=== PATIENT | female | born 1965 | race Caucasian/White ===

== ENCOUNTER 2016-09-29 00:08 | Inpatient (IN) | payer OTHER ==
[2016-09-29] MEDS ORDERED: fentaNYL Inj 100 MCG/2 ML VIAL ONE (01:19)
[2016-09-29] MEDS ORDERED: ONDANSETRON 4 MG/2 ML VIAL ONE (01:19)
[2016-09-29] MEDS ORDERED: Sodium Chloride 0.9% 1,000 ML ONE (01:19)
[2016-09-29] MEDS ORDERED: fentaNYL Inj 100 MCG/2 ML VIAL IVP ONE (01:39)
[2016-09-29] MEDS ORDERED: ONDANSETRON 4 MG/2 ML VIAL IVP ONE (01:39)
[2016-09-29] MEDS ORDERED: Sodium Chloride 0.9% 1,000 ML PRIMARY IV ONE (01:39)
--- NOTE | 2016-09-29 02:20 | DI ---
HISTORY: Pancreatitis. Right upper quadrant pain. Leukocytosis. COMPARISON: None available. TECHNIQUE: Sonographic images of the abdomen were obtained and submitted for interpretation. FINDINGS: The liver exhibits heterogeneously increased echotexture without discrete mass, a finding most commonly associated with hepatic steatosis. There is no intrahepatic biliary dilatation. The g allbladder is unremarkable. No cholelithiasis is detected. There is no gallbladder wall thickening. No pericholecystic fluid or sonographic Escobar's sign is present. The common bile duct is dilated at 7 mm. Imaged portions of the pancreas are notable for hypoechoic echotexture of the head of the p ancreas. The right kidney exhibits normal sonographic morphology. It measures 11.0 cm in length wit h no evidence of hydronephrosis or shadowing stones. Imaged portions of the abdominal aorta are with in normal limits with distal tapering. IMPRESSION: 1. The liver exhibits heterogeneously increased echotexture without discrete mass, a finding most com monly associated with hepatic steatosis. 2. The common bile duct is dilated at 7 mm. An MRI/MRCP may be obtained for further characterization . GI or surgical consultation should be considered. 3. Imaged portions of the pancreas are notable for hypoechoic echotexture of the head of the pancreas . Differential considerations include acute pancreatitis, though a neoplastic process could have a s imilar appearance. Advanced cross-sectional imaging is recommended for definitive characterization. NOTE: The interpreting Radiologist was not present at the time of ultrasound interrogation.
[2016-09-29] MEDS ORDERED: MAG HYDROX/AL HYDROX/SIMETH 30 ML SUSP PO PRN (03:04)
[2016-09-29] MEDS ORDERED: LORazepam Inj(ETOH withdrawal) 2 MG/ML VIAL IVP PRN ×2 (03:04)
[2016-09-29] MEDS ORDERED: Loperamide Tab 2 MG TABLET PO PRN (03:04)
[2016-09-29] MEDS ORDERED: ONDANSETRON 4 MG/2 ML VIAL IV PRN (03:04)
[2016-09-29] MEDS ORDERED: MAGNESIUM 400 MG/5 ML - 30 ML (MILK OF MAGNESIA) PO PRN (03:04)
[2016-09-29] MEDS: HEPARIN 5000 UNIT/1 ML SUBCUT SCH ×3 (03:41→19:53)
[2016-09-29] MEDS: HYDROmorphone 2 MG/1 ML IVP PRN ×7 (03:42→22:17)
[2016-09-29] MEDS: NORMAL SALINE 10 ML SYRINGE FLUSH IVP PRN ×3 (03:42→22:18)
[2016-09-29] MEDS: D5-1/2NS + 40mEq KCL 1,000 ML PRIMARY IV SCH ×3 (03:43→22:19)
[2016-09-29] MEDS: NICOTINE 21 MG /DAY PATCH TRANSDERM SCH (08:38)
[2016-09-29] MEDS: Pantoprazole Inj 40 MG in Normal Saline Flush 10 ML IVP SCH (08:38)
--- NOTE | 2016-09-29 13:31 | PDOC ---
History and Physical - History of Present Illness History of Present Illness: Is a very nice 51-year-old female with past medical history significant for alcohol use she has been not using alcohol for 3 years but recently restarted. She has had pancreatitis before 4 years ago as well started having abdominal pain went to the [place] [facility] where she was found to have elevated lipase and was transferred to [facility]. Her pain is being controlled with IV narcotics. The patient stated that she had an MRI scheduled for Wednesday for her chronic back pain and was wondering if we can do this while she is in the hospital. I explained the whole her the different causes and etiologies of pancreatitis hers most likely secondary to alcohol use her ultrasound was negative with no common bile duct the she also start him to be in alcohol withdrawal syndrome which could further prolong her hospital stay Past Medical History Medical History: Previous history of pancreatitis 4 years ago, alcohol abuse was sober for 3 years now restarted, chronic back pain Tobacco Use: Current Every Day Smoker Substance Use Type: None Alcohol Use: Heavy Medication / Allergies Home Medications: Home Medications Medication Instructions Recorded Confirmed Type Tramadol HCl 2 tab PO Q4H tab 07/19/15 09/29/16 History Cyclobenzaprine HCl [Flexeril] 10 mg PO PRN PRN 09/29/16 09/29/16 History Ibuprofen 800 mg PO PRN PRN 09/29/16 09/29/16 History Oxycodone HCl/Acetaminophen 1.5 tab PO PRN PRN 09/29/16 09/29/16 History [Oxycodone-Acetaminophen 5-325] methylPREDNISolone Dose Pack 1 tab PO DAILY 09/29/16 09/29/16 History [Medrol Dose Pack] Allergies/Adverse Reactions: Allergies Allergy/AdvReac Type Severity Reaction Status Date / Time propoxyphene napsylate Allergy Severe Anaphylaxis Verified 09/29/16 06:32 [From Darvocet-N] acetaminophen [From Tylenol] Allergy Intermediate NAUSEA Verified 09/29/16 06:32 codeine Allergy Intermediate NAUSEA Verified 09/29/16 06:32 loratadine [From Tavist ND] Allergy Intermediate HIVES Verified 09/29/16 06:32 prednisone AdvReac Intermediate HALLUCINATI Verified 09/29/16 06:32 ONS morphine AdvReac Mild VOMITING Verified 09/29/16 06:32 contrast dye Allergy HIVES Uncoded 09/29/16 06:32 Review of Systems - Review of Systems All Systems: Reviewed & No Additional Complaints Except as Stated - Eye Exam Eye Exam: DENIES: Negative System Review, Acuity Good, Acuity Fair, Acuity Poor , Glasses/Contacts, Vision Loss, Blurring, Redness, Diplopia, Catarats, Other, See HPI - Mouth/Throat Mouth/Throat Exam: DENIES: Negative System Review, Dental Problems, Oral Ulcers , Sore Throat, Hoarseness, Dysphagia, Dental Pain, Other, See HPI - Cardiovascular Cardiovascular: DENIES: Negative System Review, Chest Pain, Edema, Syncope, Palpitations, Orthopnea, Paroxysmal Nocturnal Dyspnea, Other, See HPI - Gastrointestinal Gastrointestinal / Abdominal: REPORTS: Abdominal Pain - Genitourinary Genitourinary: DENIES: Negative System Review, Pain, Burning, Hematuria, Incontinence, Urgency, Hesitant Stream, Decreased Stream, Nocutria, Discharge, Sexual Dyfunction, Other, See HPI - Neurological Neurologic: REPORTS: Tremors Exam - Vitals Vital Signs: Vital Signs Temperature 98.4 F Temperature Source Oral Pulse Rate [Apical] 68 Pulse Rate [Pulse Oximeter] 74 Pulse Rate 68 Respiratory Rate 16 Blood Pressure [Left Arm] 155/99 Blood Pressure 155/99 Pulse Ox 96 Oxygen Flow Rate 2 Oxygen Delivery Method Room Air Height 5 ft 9 in Weight 57.606 kg - General General Appearance: POSITIVE: No Acute Distress, Cooperative - Head Head Exam: POSITIVE: Normal Inspection, Normocephalic, Atraumatic - Eye Eye Exam: POSITIVE: Normal Appearance - Neck Neck Exam: POSITIVE: Normal Inspection, Full ROM - Respiratory Respiratory Exam: POSITIVE: Clear to Auscultation - Bilaterally, Breathing Non Labored, Normal To Percussion, Normal to Percussion and Palpation - Cardiovascular Cardiovascular Exam: POSITIVE: RRR, No Murmur, No Clicks, No Gallops - GI/Abdominal GI/Abdominal Exam: POSITIVE: Non Tender, Non Distended, Soft - Extremities Extremities Exam: POSITIVE: No Clubbing Present, No Edema Present - Neurological Neurological Exam: POSITIVE: Alert, Oriented x 3, No Facial Droop, Speech Intact / Clear Assessment and Plan - Patient Problems (1) Acute pancreatitis Current Visit: Yes Status: Acute Comment: Keep the patient nothing by mouth monitor lipase and amylase. We will obtain a CT scan of her abdomen and pelvis (2) Alcohol withdrawal syndrome Current Visit: Yes Status: Acute Comment: LONNIE scale with Ativan , thiamine Protonix (3) Abdominal pain Current Visit: Yes Status: Acute
[2016-09-29] MEDS: THIAMINE 100 MG/1 ML - 2 ML IM SCH (13:52)
[2016-09-29 14:24] LABS: HEMATOCRIT 44.1 % (37.0-47.0); HEMOGLOBIN 15.2 g/dL (12.0-16.0); MEAN CORPUSCULAR HEMOGLOBIN 33.3 PG (27-31); MEAN CORPUSCULAR HGB CONC 34.5 g/dL (33-37); RDW COEFFICIENT OF VARIATION 13.6 % (11.5-14.5); RED BLOOD COUNT 4.57 10^6/uL (4.20-5.40); WHITE BLOOD COUNT 9.17 10^3/uL (4.8-10.8)
[2016-09-29 15:39] LABS: ASPARTATE AMINO TRANSFERASE 68 IU/L (8-39); BILIRUBIN,TOTAL 0.6 mg/dL (0.3-1.2); BLOOD UREA NITROGEN 14 mg/dL (7-22); CHLORIDE 104 meq/L (98-112); CREATININE 0.7 mg/dL (0.50-1.20); EST GLOMERULAR FILTRATION > 60 (>60 ml/min/1.73m(2)); GLUCOSE 110 mg/dL (78-110); MAGNESIUM 1.9 mg/dL (1.6-2.4); POTASSIUM 4.5 meq/L (3.8-5.2); SODIUM 135 meq/L (135-145); TOTAL PROTEIN 6.4 g/dL (6.1-8.0)
--- NOTE | 2016-09-29 19:43 | DI ---
CT ABDOMEN/PELVIS W/O CONTRAST,09/29/2016 6:02 PM: Clinical History: Pancreatitis. Previous Exam: None at this facility. Findings: Multiple helically acquired CT images are obtained through the abdomen and pelvis without contrast. The liver, spleen, pancreas and adrenals are unremarkable. There is peripancreatic fat stranding whic h extends around the right peritoneal reflection with thickening of the anterior pararenal fascia. The urinary bladder is unremarkable. The appendix is within normal limits. There is no evidence of free air nor free fluid. There is no abscess. Skeletal structures are unremarkable. There is moderate stool seen throughout the colon. Impression: Peripancreatic inflammatory changes most consistent with pancreatitis. There is no evidence of absces s nor pseudocyst at this time.
[2016-09-30] MEDS: HYDROmorphone 2 MG/1 ML IVP PRN ×3 (01:18→06:17)
[2016-09-30] MEDS: NORMAL SALINE 10 ML SYRINGE FLUSH IVP PRN ×3 (01:18→06:17)
[2016-09-30] MEDS: HEPARIN 5000 UNIT/1 ML SUBCUT SCH ×3 (03:48→18:37)
[2016-09-30] MEDS: D5-1/2NS + 40mEq KCL 1,000 ML PRIMARY IV SCH ×5 (07:11→19:01)
[2016-09-30 07:50] LABS: BASOPHILS # (AUTO) 0.01 10*3/UL; BASOPHILS % (AUTO) 0.1 % (0-1); EOSINOPHILS % (AUTO) 1.4 % (0-8); HEMATOCRIT 44.1 % (37.0-47.0); IMM GRAN % (AUTO) 0.3 % (0-5); IMM GRAN# (AUTO) 0.02 10*3/UL; LYMPHOCYTES # (AUTO) 2.15 10*3/uL; LYMPHOCYTES % (AUTO) 27.3 % (10-50); MEAN CORPUSCULAR HEMOGLOBIN 33.2 PG (27-31); MONOCYTES # (AUTO) 0.61 10*3/UL (0.3-0.8); MONOCYTES % (AUTO) 7.8 % (5-15); NEUTROPHILS # (AUTO) 4.97 10*3/UL; NEUTROPHILS % (AUTO) 63.1 % (50-80); RDW COEFFICIENT OF VARIATION 13.3 % (11.5-14.5); RED BLOOD COUNT 4.52 10^6/uL (4.20-5.40); WHITE BLOOD COUNT 7.87 10^3/uL (4.8-10.8)
[2016-09-30 07:53] LABS: PLATELET MORPHOLOGY COMMENT NORMAL MORPHOLOGY (NORM)
[2016-09-30 08:03] LABS: ASPARTATE AMINO TRANSFERASE 90 IU/L (8-39); BILIRUBIN,TOTAL 0.5 mg/dL (0.3-1.2); BLOOD UREA NITROGEN 12 mg/dL (7-22); CALCIUM 9.2 mg/dL (8.7-10.7); CHLORIDE 105 meq/L (98-112); CREATININE 0.6 mg/dL (0.50-1.20); EST GLOMERULAR FILTRATION > 60 (>60 ml/min/1.73m(2)); GLUCOSE 105 mg/dL (78-110); POTASSIUM 4.7 meq/L (3.8-5.2); SODIUM 138 meq/L (135-145); TOTAL PROTEIN 6.3 g/dL (6.1-8.0)
[2016-09-30] MEDS: Pantoprazole Inj 40 MG in Normal Saline Flush 10 ML IVP SCH (08:21)
[2016-09-30] MEDS: THIAMINE 100 MG/1 ML - 2 ML IM SCH (08:22)
[2016-09-30] MEDS: NICOTINE 21 MG /DAY PATCH TRANSDERM SCH (08:23)
--- NOTE | 2016-09-30 08:23 | PDOC(PROG) ---
Date and Time of Service: 09/27/2016 8:21 AM Interval History: Subjective Patient feels better than when she came in, she came into the hospital because of epigastric pain that radiated to the back. She did say that she vomited multiple times around 8 times. She presented to [place] she was found to have pancreatitis and was transferred here. No more vomiting since she's been here. She did have a bowel movement 2 days ago. Currently she rates her pain maybe 7 out of 10. She does not appear in distress. Objective : Data - Labs CBC and BMP: 09/30/16 06:25 09/30/16 06:25 Labs - Last 24 Hours: Laboratory Results 09/29/16 09/30/16 Range/Units 14:21 06:25 WBC 9.17 7.87 (4.8-10.8) 10^3/uL RBC 4.57 4.52 (4.20-5.40) 10^6/uL Hgb 15.2 15.0 (12.0-16.0) g/dL Hct 44.1 44.1 (37.0-47.0) % MCV 96.5 97.6 (81-99) FL MCH 33.3 H 33.2 H (27-31) PG MCHC 34.5 34.0 (33-37) g/dL RDW Std Deviation 46.9 46.8 (39-50) fL RDW Coeff of Cherrie 13.6 13.3 (11.5-14.5) % Plt Count 155 140 (140-350) 10*3/uL MPV 10.0 10.0 (7.4-12.2) FL Immature Gran % (Auto) 0.3 (0-5) % Neut % (Auto) 63.1 (50-80) % Lymph % (Auto) 27.3 (10-50) % [place] % (Auto) 7.8 (5-15) % Eos % (Auto) 1.4 (0-8) % Baso % (Auto) 0.1 (0-1) % Immature Gran # (Auto) 0.02 10*3/UL Neut # (Auto) 4.97 10*3/UL Lymph # (Auto) 2.15 10*3/uL Becker # (Auto) 0.61 (0.3-0.8) 10*3/UL Eos # (Auto) 0.11 10*3/UL Baso # (Auto) 0.01 10*3/UL WBC Morphology Comment Normal morphology (NORM) Plt Morphology Comment Normal morphology (NORM) RBC Morph Comment Normal morphology (NORM) Sodium 135 138 (135-145) meq/L Potassium 4.5 4.7 (3.8-5.2) meq/L Chloride 104 105 (98-112) meq/L Carbon Dioxide 23 23 (23-33) meq/L Anion Gap 8 10 (5-20) BUN 14 12 (7-22) mg/dL Creatinine 0.7 0.6 (0.50-1.20) mg/dL Estimated GFR > 60 > 60 (>60 ml/min/1.73m(2)) BUN/Creatinine Ratio 20.00 20.00 (6-20) Glucose 110 105 (78-110) mg/dL Calculated Osmolality 281.0 285.0 (267-292) mOsm/kg Lactic Acid < 0.5 L (0.70-2.10) MMOL/L Calcium 9.0 9.2 (8.7-10.7) mg/dL Magnesium 1.9 (1.6-2.4) mg/dL Total Bilirubin 0.6 0.5 (0.3-1.2) mg/dL AST 68 H 90 H (8-39) IU/L ALT 74 H 70 H (9-52) IU/L Alkaline Phosphatase 103 96 (38-126) IU/L Total Protein 6.4 6.3 (6.1-8.0) g/dL Albumin 4.0 3.7 (3.5-4.8) g/dL Globulin 2.4 L 2.6 (2.50-4.10) g/dL Albumin/Globulin Ratio 1.60 1.40 (1.3-2.0) mg/g Lipase 949 H 674 H (23-300) IU/L Objective : Exam - General General Appearance: No Acute Distress, Cooperative, Thin - Head Head Exam: Normal Inspection - Eye Eye Exam: Normal Appearance - ENT ENT Exam: Normal Exam - Neck Neck Exam: Normal Inspection - Respiratory Respiratory Exam: Clear to Auscultation - Bilaterally - Cardiovascular Cardiovascular Exam: RRR - GI/Abdominal GI/Abdominal Exam: Normal Bowel Sounds, Non Distended, Soft Additional GI/Abdominal Exam Details: Minimal tenderness in the epigastric area - Rectal Rectal Exam: Deferred - External Exam: Deferred - Extremities Extremities Exam: Normal Inspection - Back Back Exam: Normal Inspection - Neurological Neurological Exam: Alert, Oriented x 3, CN II-XII Intact, Moves All Extremities Equally Additional Neurological Exam Details: No tremor noted in hand - Integumentary Integumentary Exam: Normal Color Assessment and Plan - Patient Problems (1) Acute pancreatitis Current Visit: Yes Status: Acute Comment: Secondary to alcohol, I think we can start her on clear liquid and advance as tolerated. Continue current pain medication. Will write also for oxycodone and see whether we can transition her to oral pain medications (2) Alcohol withdrawal syndrome Current Visit: Yes Status: Acute Comment: She is on CIWA protocol continue.
[2016-09-30] MEDS: oxyCODONE IR Tab 5 MG TAB PO PRN ×3 (08:36→19:49)
[2016-10-01] MEDS: HEPARIN 5000 UNIT/1 ML SUBCUT SCH ×2 (04:14→11:46)
[2016-10-01] MEDS: D5-1/2NS + 40mEq KCL 1,000 ML PRIMARY IV SCH (05:16)
[2016-10-01 06:46] LABS: BASOPHILS # (AUTO) 0.02 10*3/UL; BASOPHILS % (AUTO) 0.2 % (0-1); EOSINOPHILS % (AUTO) 1.7 % (0-8); HEMATOCRIT 44.6 % (37.0-47.0); HEMOGLOBIN 15.6 g/dL (12.0-16.0); IMM GRAN % (AUTO) 0.3 % (0-5); IMM GRAN# (AUTO) 0.03 10*3/UL; LYMPHOCYTES # (AUTO) 2.23 10*3/uL; LYMPHOCYTES % (AUTO) 24.8 % (10-50); MEAN CORPUSCULAR HEMOGLOBIN 33.3 PG (27-31); MEAN PLATELET VOLUME 10.7 FL (7.4-12.2); MONOCYTES # (AUTO) 0.64 10*3/UL (0.3-0.8); MONOCYTES % (AUTO) 7.1 % (5-15); NEUTROPHILS # (AUTO) 5.92 10*3/UL; NEUTROPHILS % (AUTO) 65.9 % (50-80); RDW COEFFICIENT OF VARIATION 13.5 % (11.5-14.5); RED BLOOD COUNT 4.68 10^6/uL (4.20-5.40); WHITE BLOOD COUNT 8.99 10^3/uL (4.8-10.8)
[2016-10-01 06:48] LABS: PLATELET MORPHOLOGY COMMENT NORMAL MORPHOLOGY (NORM)
[2016-10-01 07:06] LABS: ASPARTATE AMINO TRANSFERASE 75 IU/L (8-39); BILIRUBIN,TOTAL 0.7 mg/dL (0.3-1.2); BLOOD UREA NITROGEN 11 mg/dL (7-22); BUN/CREATININE RATIO 18.33 (6-20); CALCIUM 9.3 mg/dL (8.7-10.7); CHLORIDE 106 meq/L (98-112); CREATININE 0.6 mg/dL (0.50-1.20); EST GLOMERULAR FILTRATION > 60 (>60 ml/min/1.73m(2)); GLUCOSE 104 mg/dL (78-110); SODIUM 138 meq/L (135-145); TOTAL PROTEIN 6.6 g/dL (6.1-8.0)
[2016-10-01 07:11] LABS: POTASSIUM 5.5 meq/L (3.8-5.2)
[2016-10-01 07:19] VITALS: RESP 16
--- NOTE | 2016-10-01 08:00 | PDOC(PROG) ---
Date and Time of Service: 10/01/2016 a.m. Interval History: Subjective She feels better, no significant abdominal pain. No vomiting. She did tolerate her clear liquid yesterday. She did have some broth last night also and tolerated that. She did say she woke up [facility] and did not know where she is, but that's corrected quickly. They did give her though some Ativan [facility]. She wants to go home. She said she planning on quitting drinking. Objective : Data - Labs CBC and BMP: 10/01/16 06:31 10/01/16 06:31 Labs - Last 24 Hours: Laboratory Results 09/30/16 10/01/16 Range/Units 06:25 06:31 WBC 8.99 (4.8-10.8) 10^3/uL RBC 4.68 (4.20-5.40) 10^6/uL Hgb 15.6 (12.0-16.0) g/dL Hct 44.6 (37.0-47.0) % MCV 95.3 (81-99) FL MCH 33.3 H (27-31) PG MCHC 35.0 (33-37) g/dL RDW Std Deviation 45.9 (39-50) fL RDW Coeff of Cherrie 13.5 (11.5-14.5) % Plt Count 143 (140-350) 10*3/uL MPV 10.7 (7.4-12.2) FL Immature Gran % (Auto) 0.3 (0-5) % Neut % (Auto) 65.9 (50-80) % Lymph % (Auto) 24.8 (10-50) % [place] % (Auto) 7.1 (5-15) % Eos % (Auto) 1.7 (0-8) % Baso % (Auto) 0.2 (0-1) % Immature Gran # (Auto) 0.03 10*3/UL Neut # (Auto) 5.92 10*3/UL Lymph # (Auto) 2.23 10*3/uL [place] # (Auto) 0.64 (0.3-0.8) 10*3/UL Eos # (Auto) 0.15 10*3/UL Baso # (Auto) 0.02 10*3/UL WBC Morphology Comment Normal morphology (NORM) Plt Morphology Comment Normal morphology (NORM) RBC Morph Comment Normal morphology (NORM) Sodium 138 138 (135-145) meq/L Potassium 4.7 5.5 H (3.8-5.2) meq/L Chloride 105 106 (98-112) meq/L Carbon Dioxide 23 24 (23-33) meq/L Anion Gap 10 8 (5-20) BUN 12 11 (7-22) mg/dL Creatinine 0.6 0.6 (0.50-1.20) mg/dL Estimated GFR > 60 > 60 (>60 ml/min/1.73m(2)) BUN/Creatinine Ratio 20.00 18.33 (6-20) Glucose 105 104 (78-110) mg/dL Calculated Osmolality 285.0 284.0 (267-292) mOsm/kg Calcium 9.2 9.3 (8.7-10.7) mg/dL Total Bilirubin 0.5 0.7 (0.3-1.2) mg/dL AST 90 H 75 H (8-39) IU/L ALT 70 H 60 H (9-52) IU/L Alkaline Phosphatase 96 92 (38-126) IU/L Total Protein 6.3 6.6 (6.1-8.0) g/dL Albumin 3.7 3.8 (3.5-4.8) g/dL Globulin 2.6 2.8 (2.50-4.10) g/dL Albumin/Globulin Ratio 1.40 1.30 (1.3-2.0) mg/g Lipase 674 H 469 H (23-300) IU/L Objective : Exam - General General Appearance: No Acute Distress, Cooperative - Head Head Exam: Normal Inspection - Eye Eye Exam: Normal Appearance - ENT ENT Exam: Normal Exam - Neck Neck Exam: Normal Inspection - Respiratory Respiratory Exam: Clear to Auscultation - Bilaterally - Cardiovascular Cardiovascular Exam: RRR - GI/Abdominal GI/Abdominal Exam: Normal Bowel Sounds, Non Tender, Non Distended, Soft - Rectal Rectal Exam: Deferred - External Exam: Deferred - Extremities Extremities Exam: Normal Inspection - Back Back Exam: Normal Inspection - Neurological Neurological Exam: Alert, Oriented x 3, Speech Intact / Clear, Moves All Extremities Equally Additional Neurological Exam Details: No tremor noted - Psychiatric Psychiatric Exam: Normal Affect Assessment and Plan - Patient Problems (1) Acute pancreatitis Current Visit: Yes Status: Acute Comment: This is improving. She is tolerating diet. I did tell her that we'll check on her later on today as she is having more regular meal this morning and if she doesn't have issues may send her home. I did tell her probably she need to have an MRI as recommended by the radiologist of the biliary duct as an outpatient. (2) Alcohol withdrawal syndrome Current Visit: Yes Status: Acute Comment: Resolved.
--- NOTE | 2016-10-01 08:28 | PDOC ---
Abdomen/Flank HPI - General Chief Complaint: Abdomen Pain Stated Complaint: ABDOMINAL PAIN Date Seen by Provider: 09/29/16 Time Seen by Provider: 00:10 - History of Present Illness Initial Comments: Patient's very nice 51-year-old woman who presents to the emergency department after being seen in the emergency department [place]. She is a daily drinker who does have history of pancreatitis who started to have epigastric pain again. Labs confirmed pancreatitis in loss but she also had substantial right upper quadrant pain and the provider there recommended being evaluated here for consideration of imaging. Patient did not want to go by ambulance therefore left in personal vehicle with a significant other and was brought here. Here she continues to have epigastric pain up to the right upper quadrant. She denies any hematemesis or hematochezia fever or chills vomiting bowel changes or other substantial issues. - Patient Home Medications Home Medications: Home Medications Tramadol HCl 2 tab PO Q4H tab 07/19/15 Cyclobenzaprine HCl [Flexeril] 10 mg PO PRN PRN 09/29/16 Ibuprofen 800 mg PO PRN PRN 09/29/16 Oxycodone HCl/Acetaminophen [Oxycodone-Acetaminophen 5-325] 1.5 tab PO PRN PRN 09/29/16 methylPREDNISolone Dose Pack [Medrol Dose Pack] 1 tab PO DAILY 09/29/16 - Patient Allergies Allergies/Adverse Reactions: Allergies Allergy/AdvReac Type Severity Reaction Status Date / Time propoxyphene napsylate Allergy Severe Anaphylaxis Verified 10/01/16 06:35 [From Darvocet-N] acetaminophen [From Tylenol] Allergy Intermediate NAUSEA Verified 10/01/16 06:35 codeine Allergy Intermediate NAUSEA Verified 10/01/16 06:35 loratadine [From Tavist ND] Allergy Intermediate HIVES Verified 10/01/16 06:35 prednisone AdvReac Intermediate HALLUCINATI Verified 10/01/16 06:35 ONS morphine AdvReac Mild VOMITING Verified 10/01/16 06:35 contrast dye Allergy HIVES Uncoded 10/01/16 06:35 Past Medical History - heen HEENT History: Denies History Cardiovascular History: Denies History Respiratory History: Denies History Gastrointestinal History: GERD, Pancreatitis, Other (please comment) Additional Gastrointestinal History: Pancreatitis from chronic alcoholism. Genitourinary History: Denies History Endocrine History: Denies History Musculoskeletal History: Back Pain, Other (please comment) Additional Musculoskeletal History: Right knee repair--no harware. Neurological History: Denies History Blood Disorders: Denies History Psychiatric History: Depression, Other (please comment) Additional Psychiatric History: Alcoholism. Female Reproductive History: Hysterectomy, Other (please comment) Additional Female Reproductive History: Hx of full hysterectomy due to cervical cancer. Obstetrical History: Denies History Cancer History: Other (please comment) In Past Year Been Physically Harmed or Verbally Threatened: No History of MDRO: No Tobacco Use: Current Every Day Smoker Alcohol Use: Heavy Type of alcohol normally used: Beer, Hard Liquor, Wine Substance Use Type: None Previous Surgical History: Yes Type / Date of Surgery: Right knee repair, tonsillectomy and adnoidectomy, full hysterectomy. Past Medical History Reviewed: Reviewed - No Changes ROS - Limitations ROS Limitations: No Limitations Constitution: REPORTS: Denies Symptoms Cardiovascular: REPORTS: Denies Cardiac Symptoms Respiratory: REPORTS: Denies Resp Symptoms Neurological: REPORTS: Denies Neuro Symptoms Abdominal/Flank Pain PE - General Appearance General Appearance: POSITIVE: Alert, Cooperative, No Acute Distress - Neck Neck: POSITIVE: Normal Inspection - Respiratory Respiratory: POSITIVE: No Respiratory Distress, Breath Sounds Normal - Cardiovascular Cardiovascular: POSITIVE: Regular Rate and Rhythm, Heart Sounds Normal - Abdomen Additional Abdominal Details: She has tenderness to palpation in the epigastrium up to the right upper quadrant. Bowel sounds are present. Abdomen Progress - Results Reviewed by me Radiology Findings: Mild biliary ductal dilatation no evidence of stones in the gallbladder or retained stone in the common bile duct. No evidence of cholecystitis. Lab Results Reviewed: Yes - Patient's Progress MDM / ED Course: Patient has acute pancreatitis most likely secondary to alcohol abuse. I've discussed her case with hospitalist has agreed to admit her to the hospital. She has had substantial alcohol withdrawal past when stopping alcohol use. Patient will be admitted and placed on IV fluids and made nothing by mouth status given pain control. Patient Care Time - Estimated PCT Patient Care Time (In Minutes): 40 Vital Signs - Recent Vital Signs Vital Signs: Vital Signs (Last 8 hours) Temp Pulse Pulse Pulse Resp BP BP 10/01/16 07:27 88 10/01/16 07:23 96.6 F L 88 16 123/89 10/01/16 07:18 96.6 F L 88 16 123/89 10/01/16 04:38 97.6 F 64 22 166/95 10/01/16 03:00 Pulse Ox 10/01/16 07:27 96 10/01/16 07:23 10/01/16 07:18 96 10/01/16 04:38 96 10/01/16 03:00 95 - VS Reviewed Vital Signs Reviewed: Yes Discharge Clinical Impression: Acute pancreatitis Qualifiers: Pancreatitis type: alcohol induced Acute pancreatitis complication: no infection or necrosis Qualifier Code: (K85.20) Alcohol induced acute pancreatitis without necrosis or infection Discharge Disposition: Admit to Inpatient Condition: Stable Date Decision to Admit to Inpatient: 09/29/16 Time Decision to Admit to Inpatient: 02:00
[2016-10-01] MEDS: THIAMINE 100 MG/1 ML - 2 ML IM SCH (08:33)
[2016-10-01] MEDS: Pantoprazole Inj 40 MG in Normal Saline Flush 10 ML IVP SCH (08:35)
[2016-10-01] MEDS: NICOTINE 21 MG /DAY PATCH TRANSDERM SCH (08:35)
[2016-10-01 11:51] VITALS: TEMP 98.1
--- NOTE | 2016-10-01 12:35 | DCSUMMARY ---
Hospitalization Summary Admit Date: 09/29/16 Discharge Date: 10/01/16 Hospital Course: Discharge diagnoses 1. Acute alcoholic pancreatitis 2. Previous history of pancreatitis 3. Chronic back pain 4. Dilated common bile duct at 7 mm patient booked for an MRCP as an outpatient 5. Hepatic steatosis Hospital course This is a 51 years old female with medical history significant for history of alcoholism and previous history of pancreatitis who has been sober for about 3 years and then recently started drinking. She presented to [facility] because of multiple episode of vomiting and abdominal pain evaluation revealed elevated lipase and was transferred here for management of pancreatitis. She was admitted by Dr. Escalona please see his note. Her lipase is elevated more than 900. She was given fluids, IV pain medications. She had a CT which showed peripancreatic inflammation. Ultrasound did show dilated common duct at 7 mm. The gallbladder looked normal. I saw the patient next day she was improving we started her on clear liquid and advanced her diet gradually. On the day of discharge she was doing better I kept her until the afternoon she had her breakfast and tolerated her diet, the last time she needed a pain medication was the night before discharge. She didn 't have significant withdrawal symptoms. We thought she could be discharged home follow-up with her primary as an outpatient. I did tell her about the finding of the ultrasound and that she to have an MRCP as an outpatient and results her PCP. We did discuss quitting alcohol she said she had good support system and she managed to do it before and she'll do it again. We did give her a few pills of Ativan in case she has some withdrawal symptoms. Did inform her about not drinking while taking this medication as this may lead to respiratory depression and even . Laboratory Results 09/29/16 09/30/16 10/01/16 Range/Units 14:21 06:25 06:31 WBC 9.17 7.87 8.99 (4.8-10.8) 10^3/uL RBC 4.57 4.52 4.68 (4.20-5.40) 10^6/uL Hgb 15.2 15.0 15.6 (12.0-16.0) g/dL Hct 44.1 44.1 44.6 (37.0-47.0) % MCV 96.5 97.6 95.3 (81-99) FL MCH 33.3 H 33.2 H 33.3 H (27-31) PG MCHC 34.5 34.0 35.0 (33-37) g/dL RDW Std Deviation 46.9 46.8 45.9 (39-50) fL RDW Coeff of Cherrie 13.6 13.3 13.5 (11.5-14.5) % Plt Count 155 140 143 (140-350) 10*3/uL MPV 10.0 10.0 10.7 (7.4-12.2) FL Immature Gran % (Auto) 0.3 0.3 (0-5) % Neut % (Auto) 63.1 65.9 (50-80) % Lymph % (Auto) 27.3 24.8 (10-50) % Becker % (Auto) 7.8 7.1 (5-15) % Eos % (Auto) 1.4 1.7 (0-8) % Baso % (Auto) 0.1 0.2 (0-1) % Immature Gran # (Auto) 0.02 0.03 10*3/UL Neut # (Auto) 4.97 5.92 10*3/UL Lymph # (Auto) 2.15 2.23 10*3/uL Becker # (Auto) 0.61 0.64 (0.3-0.8) 10*3/UL Eos # (Auto) 0.11 0.15 10*3/UL Baso # (Auto) 0.01 0.02 10*3/UL WBC Morphology Comment Normal morphology Normal morphology (NORM) Plt Morphology Comment Normal morphology Normal morphology (NORM) RBC Morph Comment Normal morphology Normal morphology (NORM) Sodium 135 138 138 (135-145) meq/L Potassium 4.5 4.7 5.5 H (3.8-5.2) meq/L Chloride 104 105 106 (98-112) meq/L Carbon Dioxide 23 23 24 (23-33) meq/L Anion Gap 8 10 8 (5-20) BUN 14 12 11 (7-22) mg/dL Creatinine 0.7 0.6 0.6 (0.50-1.20) mg/dL Estimated GFR > 60 > 60 > 60 (>60 ml/min/1.73m(2)) BUN/Creatinine Ratio 20.00 20.00 18.33 (6-20) Glucose 110 105 104 (78-110) mg/dL Calculated Osmolality 281.0 285.0 284.0 (267-292) mOsm/kg Lactic Acid < 0.5 L (0.70-2.10) MMOL/L Calcium 9.0 9.2 9.3 (8.7-10.7) mg/dL Magnesium 1.9 (1.6-2.4) mg/dL Total Bilirubin 0.6 0.5 0.7 (0.3-1.2) mg/dL AST 68 H 90 H 75 H (8-39) IU/L ALT 74 H 70 H 60 H (9-52) IU/L Alkaline Phosphatase 103 96 92 (38-126) IU/L Total Protein 6.4 6.3 6.6 (6.1-8.0) g/dL Albumin 4.0 3.7 3.8 (3.5-4.8) g/dL Globulin 2.4 L 2.6 2.8 (2.50-4.10) g/dL Albumin/Globulin Ratio 1.60 1.40 1.30 (1.3-2.0) mg/g Lipase 949 H 674 H 469 H (23-300) IU/L Discharge suction Diet low-fat Activity as tolerated Medications Home Medications Medication Instructions Recorded Confirmed Type Tramadol HCl 2 tab PO Q4H tab 07/19/15 09/29/16 History Cyclobenzaprine HCl [Flexeril] 10 mg PO PRN PRN 09/29/16 09/29/16 History Ibuprofen 800 mg PO PRN PRN 09/29/16 09/29/16 History LORazepam Tab [Ativan Tab] 1 mg PO BID PRN #6 tablet 10/01/16 Rx Multivitamin Tab [Thera Tab] 1 each PO DAILY #1 tablet 10/01/16 Rx Pantoprazole Sodium [Protonix] 40 mg PO DAILY #14 tablet. 10/01/16 Rx Follow-up with her PCP in 1-2 weeks Condition at discharge was stable for discharge Exam - Vitals Vital Signs: Vital Signs Temperature 98.1 F Temperature Source Temporal Artery Scan Pulse Rate [Apical] 88 Pulse Rate [Pulse Oximeter] 64 Pulse Rate 91 Respiratory Rate 16 Blood Pressure [Left Arm] 123/89 Blood Pressure 137/56 Pulse Ox 90 Oxygen Flow Rate 1 Oxygen Delivery Method Room Air Height 5 ft 9 in Weight 127 lb Patient Problems - Patient Problem List (1) Acute pancreatitis Status: Acute Qualifiers: Pancreatitis type: alcohol induced Acute pancreatitis complication: no infection or necrosis Qualifier Code(s): (K85.20) Alcohol induced acute pancreatitis without necrosis or infection (2) Alcohol withdrawal syndrome Status: Acute
== END 2016-10-01 13:30 | disposition home or self-care (01) | DRG 440 ==
LOC: ER 00:08 → MED/SURG 02:48
PROVIDERS: ADMIT Internal Medicine; ATTEND Internal Medicine
DX: K85.20 Alcohol induced acute pancreatitis without necrosis or infection (principal); M54.89 Other dorsalgia; K83.8 Other specified diseases of biliary tract; N28.89 Other specified disorders of kidney and ureter
CPT/HCPCS: 36415; 74176; 76705; 80053; 83605; 83690; 83735; 85025; 85027; 94761; 96361; 96374; 96375; 99284; J1170; J1644; J2060; J2405; J3010; J3411; J3490; J7030

== ENCOUNTER → 2016-10-09 | Outpatient (CLI) | payer OTHER ==
--- NOTE | 2016-10-09 15:58 | DI ---
MRI ABDOMEN W/O CN,10/09/2016 8:57 AM: Clinical History: Pancreatitis and prominent common bile duct. Previous Exam: None available at this time although there is an ultrasound on file is not visible at this time due to limitations to the archive system. Findings: Multiplanar MR images are obtained through the abdomen following an MRCP protocol, and demonstrate no rmal hepatic and splenic parenchyma. The kidneys and adrenals are grossly normal. The gallbladder is normal without filling defects. The common bile duct demonstrates normal course an d caliber. The pancreatic duct is also normal. There are no filling defects. Vascular structures are unremarkable. The skeletal structures are also unremarkable. Impression: Normal MRCP.
== END ==
LOC: MRI 08:42
PROVIDERS: ATTEND Internal Medicine
DX: K85.90 Acute pancreatitis without necrosis or infection, unspecified (principal)
CPT/HCPCS: 74181

== ENCOUNTER → 2016-10-15 | Outpatient (CLI) | payer OTHER ==
--- NOTE | 2016-10-15 20:38 | DI ---
MRI LUMBAR SPINE SCAN WITHOUT IV CONTRAST, 10/15/2016 8:43 AM: Clinical History: Low back pain. Previous Exam: 12/04/2011. Technique: Sagittal and axial T2 weighted; sagittal T1 weighted and T2 STIR; and axial PD. The vertebral bodies are of normal height and size. There is severe at L5-S1 disc space narrowing. Al l lumbar disc spaces show desiccation change. The cord terminates at T12 and the conus medullaris is normal. The T11-12 through L1-2 disc spaces are normal. The L2-3 through L4-5 disc spaces have mild c ircumferentially bulging but not herniated discs without canal or neural foraminal stenosis. L5-S1 grande s a circumferentially bulging but not herniated disc. There is mild bilateral neural foraminal stenos is but the nerve roots still exit appropriately. There is no canal stenosis. Readin. There are bulging but not herniated discs without canal or neural foraminal stenosis from L2-3 th rough L5-S1. 2. The T11-12 through L1-2 disc spaces are normal.
== END ==
LOC: MRI 08:26
PROVIDERS: ATTEND Family Medicine
DX: M54.5 Low back pain (principal); M47.817 Spondylosis without myelopathy or radiculopathy, lumbosacral region
CPT/HCPCS: 72148

== ENCOUNTER 2017-01-15 10:22 | Day surgery (SDC) | payer OTHER ==
[2017-01-15] MEDS ORDERED: LIDOCAINE W/ SODIUM BICARB 0.5 ML SYR ONE (12:49)
[2017-01-15] MEDS ORDERED: Lactated Ringers 1,000 ML PRIMARY IV ONE (12:49)
[2017-01-15] MEDS ORDERED: ceFAZolin Inj 2gm (Premix) 50 ML IV ONE (12:49)
--- NOTE | 2017-01-15 14:35 | DI ---
CT SCAN OF THE LEFT WRIST, 01/15/2017 11:04 AM : Clinical History: Left wrist fracture. Scans are obtained from the distal radius and ulna to the metacarpal bones of the left wrist without IV contrast. Sagittal and coronal reformatted images are also generated. The ulna is normal. There is a comminuted fracture of the distal radius with extensive intra-articula r involvement. The tip of the radiostyloid has a comminuted fracture and this fracture extends transv ersely through the dorsal aspect of the distal radius in the central portion of the scaphoid fossa of the distal radius, slight depression is present representing a " punch" fracture fragment that is only minimally depressed probably in the range of 1 mm. There is an estimated 25-30 degrees volar an gulation of the distal radial articular surface. There are calcific densities in the scapholunate and lunatotriquetral ligaments without evidence of distraction of those bones from each other. READIN. There is a severely comminuted intra-articular fracture of the distal radius with volar angulatio n of about 25-30 degrees. There is a central " punch" fracture component in the radial scaphoid fo ssa but the depression is only in the range of 1 mm. 2. The ulna is normal. 3. Calcifications are present in the scapholunate and lunatotriquetral ligaments without evidence of disruption of those ligaments.
[2017-01-15] MEDS ORDERED: fentaNYL Inj 250 MCG/5 ML VIAL ONE (15:07)
[2017-01-15] MEDS: fentaNYL Inj 250 MCG/5 ML VIAL IVP PRN ×3 (15:09→16:20)
[2017-01-15] MEDS ORDERED: LIDOCAINE 2%/ EPI 1:200,000 - 20 ML VIAL ONE (16:40)
[2017-01-15] MEDS ORDERED: BUPIVACAINE 0.5% W/ EPI - 10 ML VIAL ONE (16:40)
[2017-01-15] MEDS ORDERED: MIDAZOLAM 5 MG/1 ML ONE (16:40)
[2017-01-15] MEDS ORDERED: Sodium Chloride 0.9% vial 20 ML ONE (17:28)
[2017-01-15] MEDS ORDERED: BUPivacaine Liposome/PF (Exparel) Inj 20ml vial INFIL ONE (17:29)
[2017-01-15] MEDS ORDERED: BACITRACIN 50,000 UNIT VIAL IRRIG ONE (17:29)
[2017-01-15 20:33] VITALS: RESP 16
[2017-01-15 20:34] VITALS: TEMP 97.4
== END 2017-01-15 20:02 | disposition home or self-care (01) ==
LOC: CT 10:22 → SDSC 10:22
PROVIDERS: ATTEND Orthopaedic Surgery
DX: S52.562A Barton's fracture of left radius, initial encounter for closed fracture (principal); W01.0XXA Fall on same level from slipping, tripping and stumbling without subsequent striking against object, initial encounter; Y93.02 Activity, running
CPT/HCPCS: 25609; 73200; 76001; A4216; C9290; J0690; J2704; J3010; J2250; J7120

== ENCOUNTER → 2017-01-22 | Outpatient (CLI) | payer OTHER ==
--- NOTE | 2017-01-22 11:27 | DI ---
XR WRIST COMPLETE MIN 3VW,01/22/2017 10:51 AM: Clinical History: Left wrist pain Previous Exam: None at this facility. Findings: 3 views of left wrist are obtained, and demonstrate postsurgical changes consistent with screw and pl ate fixation of left distal radius. The carpal bones are unremarkable. The surrounding soft tissues are unremarkable. Impression: Postsurgical changes of the left distal radius as above otherwise unremarkable.
--- NOTE | 2017-01-22 11:28 | DI ---
XR FOREARM 2VW,01/22/2017 10:55 AM: Clinical History: Left forearm pain. Previous Exam: None at this facility. Findings: AP and lateral views of the left forearm are obtained, and demonstrate postsurgical changes of a left distal radius consistent with screw and plate fixation. The surrounding soft tissues are unremarkabl e. The elbow joint is also unremarkable. Impression: Postsurgical changes of the left distal radius otherwise unremarkable.
== END ==
LOC: ORTHO 11:05
PROVIDERS: ATTEND Orthopaedic Surgery
DX: M25.532 Pain in left wrist (principal); M79.632 Pain in left forearm; S52.56 Barton's fracture
CPT/HCPCS: 73090; 73110

== ENCOUNTER → 2017-02-04 | Outpatient (CLI) | payer OTHER ==
--- NOTE | 2017-02-04 10:24 | DI ---
XR WRIST COMPLETE MIN 3VW,02/04/2017 9:23 AM: Clinical History: No fracture left distal radius Previous Exam: January 22, 2017 Findings: 3 views of the left wrist are obtained, and demonstrate stable screw and plate fixation of the left d istal radius with some routine healing. There is surrounding soft tissue swelling. Impression: Healing left distal radial fracture.
== END ==
LOC: ORTHO 09:31
PROVIDERS: ATTEND Orthopaedic Surgery
DX: S52.56 Barton's fracture (principal); S63.502A Unspecified sprain of left wrist, initial encounter; M25.432 Effusion, left wrist
CPT/HCPCS: 73110

== ENCOUNTER → 2017-02-25 | Outpatient (CLI) | payer OTHER ==
--- NOTE | 2017-02-25 22:16 | DI ---
LEFT WRIST, 02/25/2017 12:00 PM: Clinical History: Closed fracture of the left distal radius with routine healing. Status post ORIF. Previous Exam: 02/04/2017. 3 views are submitted. The patient is status post ORIF of a comminuted fracture of the distal radius with intra-articular involvement. Alignment and position are anatomic. There is sclerosis of the dist al radioarticular surface indicating healing. Reading: Status post ORIF of the fracture of the distal radius with healing in anatomic alignment and position .
== END ==
LOC: ORTHO 12:00
PROVIDERS: ATTEND Orthopaedic Surgery
DX: S52.56 Barton's fracture (principal)
CPT/HCPCS: 73110